=== PATIENT | female | born 1985 | race Caucasian/White ===

== ENCOUNTER 2025-08-18 13:31 | Inpatient (IN) | payer OTHER, SELFPAY ==
[2025-08-18] VITALS (9 sets, daily range): BP systolic 126–169; BP diastolic 74–96; BMI 31.5
--- NOTE | 2025-08-18 07:05 | ED.GENMED ---
History of Present Illness
<MADHURI Mckeon - Last Filed: 08/18/25 14:14>
General
Chief Complaint: Abdominal Pain
Source: patient
Exam Limitations: none
Time Seen by Provider: 08/18/25 07:02
Nursing documentation reviewed up to this point in time: agreed with
History of Present Illness
History of Present Illness:
Patient is a 40-year-old female presents to the ER for evaluation of abdominal pain vomiting. Patient started vomiting on Thursday. She vomited 3 times on Thursday however since then has had pain in her back and abdomen. She complains of left-sided
abdominal back pain along with abdominal pain. She complains of pain across the upper abdomen on the left side. She has not been able to sleep last night because of the pain. She did take an ibuprofen without relief. She has been using a heating
pad to the area and if reports she has some blistering to her abdomen because of the heating pad. She is not nauseous currently. Denies any fevers. Her last good bowel movement was on Thursday 4 days ago.
She is on Zepbound. Her dose was increased 2 weeks ago.
She denies any fever chills.
Phy Exam
<MADHURI Mckeon - Last Filed: 08/18/25 14:14>
General Physical Exam
General Presentation: no apparent distress
General age: appears stated age
General Skin: warm and dry
General Habitus: normal
General Mental: alert
General Hydration: appears well hydrated
Cardiovascular Exam
Cardiovascular Exam: regular rate/rhythm, no murmur and normal peripheral pulses
Pulmonary Exam
Pulmonary Exam: lungs clear and no respiratory distress
Gastrointestinal Exam
Gastrointestinal Exam: soft and other (+ tender left side abdomen upper abdominal region. Patient has scattered blistering to abdomen from; burn from heating)
Neurological Exam
Neurological Exam: alert and oriented x3
Musculoskeletal Exam
Musculoskeletal Exam: full ROM
Skin Exam
Skin Exam: normal color and warm/dry
Psychiatric Exam
Psychiatric Exam: normal mood/affect
Course
<MADHURI Mckeon - Last Filed: 08/18/25 14:14>
Orders/Labs/Results
Orders:
Orders
08/18/25 07:16
IV Insert/Care/Rem.- Treatment PRN
0.9% Sodium Chloride 1000 ml [Nss] 1,000 ml IV BOLUS
Ketorolac [Toradol] 15 mg IV NOW STA
08/18/25 07:17
CT Abd/Pel (IV only)-DH only Urgent
Comment:
Reason For Exam: abd pain
Test Result ONCE
08/18/25 07:26
Complete Blood Count/With Diff Urgent
Comprehensive Metabolic Panel Urgent
HCG, Serum Qualitative Screen Urgent
Lipase Urgent
Manual Differential Urgent
08/18/25 08:47
HYDROmorphone [Dilaudid] 0.5 mg IV NOW STA
08/18/25 09:30
0.9% Sodium Chloride 1000 ml [Nss] 1,000 ml IV BOLUS
08/18/25 Lunch
Clear Liquid
At Your Request: Full Participation
Fluid Restriction: 1440 mL/day (48 oz)
08/18/25 10:01
GASTROINTESTINAL CONSULT Routine
Consulting Provider: Sharri Granda
Was physician already notified: Yes
Reason for consult: Acute Pancreatitis. Recent Zepbound increased. Bilirubin elevated.
08/18/25 10:04
MR Abdomen W/o & W Contrast Routine
Comment: Need MRI with and without contrast with MRCP
Reason For Exam: Need MRI with and without contrast with MRCP
Recent pill cam endoscopy?: No
08/18/25 10:10
US Abdomen Complete/Upper Routine
Comment: Stones in bile duct? Dilation?
Reason For Exam: Acute Pancreatitis. Gallstones?
08/18/25 10:15
0.9% Sodium Chloride 1000 ml [Nss] 1,000 ml IV 200 mls/hr
08/18/25 10:25
Blood Culture Q30M
GENET Source: Blood/Venous
Specimen Description:
Blood Culture Q30M
GENET Source: Blood/Venous
Specimen Description:
08/18/25 12:04
HYDROmorphone [Dilaudid] 0.5 mg IV NOW STA
08/18/25 12:34
Polyethylene Glycol Powder [Miralax] 17 grams PO ONCE ONE
08/18/25 12:42
Rx Incentive Spirometry [RESP] Routine
Frequency: q1h while awake
08/18/25 12:49
Admit/Transfer Patient As Directed
Co-Sign Provider:
Level of Care: Inpatient admission
Assign to:: Telemetry
Physician / Group: Dr. Narayan Swanson/Hospitalists
Diagnosis: Acute Pancreatitis
Reason for Telemetry: Arrhythmia
Date to Stop Telemetry: 08/21/25
Time to Stop Telemetry: 11:00
Reason for Hospitalization: Acute Pancreatitis
Expected length of stay greater than two midnights?: Yes
ELOS- Estimated Length of Stay in days: 3
I certify the patient meets the requirements for IP care: Yes
08/18/25 12:55
Code Status As Directed
Resuscitation Status: Full Code
08/18/25 12:58
Urinalysis Reflex To Culture Urgent
Date Specimen was Collected: 08/18/25
Time Specimen was Collected: 12:57
Urine Microscopic Reflex Cult Urgent
08/18/25 13:27
Electrocardiogram (*1) Routine
Reason for Study: Tachycardia
08/18/25 13:43
Troponin I Q6H
08/18/25 19:30
Troponin I Q6H
08/19/25 01:30
Troponin I Q6H
08/19/25 07:30
Troponin I Q6H
08/19/25 13:30
Troponin I Q6H
08/21/25 11:00
DC Protocol for Telemetry ONCE
Abnormal Lab Results
08/18/25 08/18/25
07:26 12:58
WBC 27.8 H 10^3/uL
(4.8-10.8)
Abs Neuts (Manual) 24.1 H 10^3/uL
(1.4-6.5)
Band Neutrophils 13 H %
(0-3)
Lymphocytes (Manual) 2 L %
(20-51)
Monocytes (Manual) 11 H %
(2-9)
Sodium 129 L mmol/L
(135-145)
Chloride 96 L mmol/L
(98-107)
BUN 6 L mg/dl
(7-17)
Glucose 149 H mg/dl
(70-99)
Calcium 8.3 L mg/dl
(8.4-10.2)
Total Bilirubin 2.4 H mg/dl
(0.2-1.3)
Lipase 776 H U/L
(23-300)
Urine Ketones 3+ A
(Negative)
Ur Occult Blood Reflex 4+ A
(Negative)
Urine RBC 7-10 A /HPF
(0-2)
Urine Bacteria (Reflex) Few A
(Negative)
Urine Albumin (Reflex) 2+ A
(Neg - Trace)
08/18/25 07:26
08/18/25 07:26
Vital Signs
Initial and Last Documented VS:
Initial Vital Signs
Temp Pulse Resp BP Pulse Ox
98 F 129 16 169/96 98
08/18/25 06:57 08/18/25 06:57 08/18/25 06:57 08/18/25 06:57 08/18/25 06:57
Last Documented Vital Signs
Temp Pulse Resp BP Pulse Ox
98 F 126 22 126/89 99
08/18/25 06:57 08/18/25 12:04 08/18/25 12:00 08/18/25 11:45 08/18/25 12:04
Grip Wrapper consulted with Physician
Grip Wrapper consulted with physician?: Yes
Name of Physician Consulted: Haydee
<Javon Hubbard DO - Last Filed: 08/18/25 09:39>
Orders/Labs/Results
Orders:
Orders
08/18/25 07:16
IV Insert/Care/Rem.- Treatment PRN
0.9% Sodium Chloride 1000 ml [Nss] 1,000 ml IV BOLUS
Ketorolac [Toradol] 15 mg IV NOW STA
08/18/25 07:17
CT Abd/Pel (IV only)-DH only Urgent
Comment:
Reason For Exam: abd pain
Test Result ONCE
08/18/25 07:26
Complete Blood Count/With Diff Urgent
Comprehensive Metabolic Panel Urgent
HCG, Serum Qualitative Screen Urgent
Lipase Urgent
Manual Differential Urgent
08/18/25 08:47
HYDROmorphone [Dilaudid] 0.5 mg IV NOW STA
08/18/25 09:30
0.9% Sodium Chloride 1000 ml [Nss] 1,000 ml IV BOLUS
08/18/25 Lunch
Clear Liquid
At Your Request: Full Participation
Fluid Restriction: 1440 mL/day (48 oz)
08/18/25 10:01
GASTROINTESTINAL CONSULT Routine
Consulting Provider: Sharri Granda
Was physician already notified: Yes
Reason for consult: Acute Pancreatitis. Recent Zepbound increased. Bilirubin elevated.
08/18/25 10:04
MR Abdomen W/o & W Contrast Routine
Comment: Need MRI with and without contrast with MRCP
Reason For Exam: Need MRI with and without contrast with MRCP
Recent pill cam endoscopy?: No
08/18/25 10:10
US Abdomen Complete/Upper Routine
Comment: Stones in bile duct? Dilation?
Reason For Exam: Acute Pancreatitis. Gallstones?
08/18/25 10:15
0.9% Sodium Chloride 1000 ml [Nss] 1,000 ml IV 200 mls/hr
08/18/25 10:25
Blood Culture Q30M
GENET Source: Blood/Venous
Specimen Description:
Blood Culture Q30M
GENET Source: Blood/Venous
Specimen Description:
08/18/25 12:04
HYDROmorphone [Dilaudid] 0.5 mg IV NOW STA
08/18/25 12:34
Polyethylene Glycol Powder [Miralax] 17 grams PO ONCE ONE
08/18/25 12:42
Rx Incentive Spirometry [RESP] Routine
Frequency: q1h while awake
08/18/25 12:49
Admit/Transfer Patient As Directed
Co-Sign Provider:
Level of Care: Inpatient admission
Assign to:: Telemetry
Physician / Group: Dr. Narayan Swanson/Hospitalists
Diagnosis: Acute Pancreatitis
Reason for Telemetry: Arrhythmia
Date to Stop Telemetry: 08/21/25
Time to Stop Telemetry: 11:00
Reason for Hospitalization: Acute Pancreatitis
Expected length of stay greater than two midnights?: Yes
ELOS- Estimated Length of Stay in days: 3
I certify the patient meets the requirements for IP care: Yes
08/18/25 12:55
Code Status As Directed
Resuscitation Status: Full Code
08/18/25 12:58
Urinalysis Reflex To Culture Urgent
Date Specimen was Collected: 08/18/25
Time Specimen was Collected: 12:57
Urine Microscopic Reflex Cult Urgent
08/18/25 13:27
Electrocardiogram (*1) Routine
Reason for Study: Tachycardia
08/18/25 13:43
Troponin I Q6H
08/18/25 19:30
Troponin I Q6H
08/19/25 01:30
Troponin I Q6H
08/19/25 07:30
Troponin I Q6H
08/19/25 13:30
Troponin I Q6H
08/21/25 11:00
DC Protocol for Telemetry ONCE
Abnormal Lab Results
08/18/25 08/18/25
07:26 12:58
WBC 27.8 H 10^3/uL
(4.8-10.8)
Abs Neuts (Manual) 24.1 H 10^3/uL
(1.4-6.5)
Band Neutrophils 13 H %
(0-3)
Lymphocytes (Manual) 2 L %
(20-51)
Monocytes (Manual) 11 H %
(2-9)
Sodium 129 L mmol/L
(135-145)
Chloride 96 L mmol/L
(98-107)
BUN 6 L mg/dl
(7-17)
Glucose 149 H mg/dl
(70-99)
Calcium 8.3 L mg/dl
(8.4-10.2)
Total Bilirubin 2.4 H mg/dl
(0.2-1.3)
Lipase 776 H U/L
(23-300)
Urine Ketones 3+ A
(Negative)
Ur Occult Blood Reflex 4+ A
(Negative)
Urine RBC 7-10 A /HPF
(0-2)
Urine Bacteria (Reflex) Few A
(Negative)
Urine Albumin (Reflex) 2+ A
(Neg - Trace)
08/18/25 07:26
08/18/25 07:26
Vital Signs
Initial and Last Documented VS:
Initial Vital Signs
Temp Pulse Resp BP Pulse Ox
98 F 129 16 169/96 98
08/18/25 06:57 08/18/25 06:57 08/18/25 06:57 08/18/25 06:57 08/18/25 06:57
Last Documented Vital Signs
Temp Pulse Resp BP Pulse Ox
98 F 126 22 126/89 99
08/18/25 06:57 08/18/25 12:04 08/18/25 12:00 08/18/25 11:45 08/18/25 12:04
<MADHURI Mckeon - Last Filed: 08/18/25 14:14>
MDM/Problems Addressed
Differential Diagnosis Includes:
Not limited to biliary colic acute pancreatitis diverticulitis colitis bowel obstruction constipation UTI renal colic
MDM/Problems Addressed:
As documented patient is a 40-year-old female who presented with abdominal pain back pain. Patient started with vomiting several days ago however has had upper left-sided abdominal pain since and she has been on Zepbound since April but dose was
recently increased 2 weeks ago. She denies any fever or chills. She has been able to tolerate oral fluids at home. She presents uncomfortable tender throughout the abdomen. She is afebrile with an elevated white count of 27,000. With an
elevated lipase of 776. Bilirubin elevated at 2.4 no prior labs for comparison. Patient does admit to drinking several times a week.
CAT scan shows pancreatitis with edema in the left retroperitoneum extending into the pelvis no findings to suggest abscess or developing pseudocyst. Patient was treated with fluids and pain medication here in the ER she is minimally tachycardic.
She will require admission for continued monitoring supportive care. Case reviewed ED physician evaluated patient case discussed admitting hospitalist.
<MADHURI Mckeon - Last Filed: 08/18/25 14:14>
*Radiology
Radiology exam reviewed: radiology read reviewed
*Pulse Oximetry
SaO2: 98
Oxygen Mode of Delivery: Room air
Patient hypoxic: no
*Critical Care Note
Total Time (30-74mins, 75-104mins- exclusive of procedures): Not Applicable
ED Attending Note
<MADHURI Mckeon - Last Filed: 08/18/25 14:14>
-
Portions of this chart may have been created with voice recognition software.� Occasional wrong word or��sound alike� substitutions may have occurred due to the inherent limitations of voice recognition software.
<Javon Hubbard DO - Last Filed: 08/18/25 09:39>
ED Attending Note
Patient seen and examined by attending physician: Yes
I performed the substantive portion of visit, reviewed & personally made and approve the management plan that is documented in note by myself or YUMIKO.: Yes
ED Attending Note:
I agree with Inge's note.
Pt with abd pain radiating to her back for the pasr 3 days. Pain getting worse. Pt admits to moderate alcohol use. She also recently started Zepbound and the dose was just increased.
General: Awake, Alert, Oriented X3. Now feeling comfortable after pain medication and antiemetics
Vitals: Tachycardic
Head: Atraumatic
Eyes: Pupils equal, EOMI
Throat: Airway intact, no exudates, dry mucosa
Abd: tender
Neuro: Nonfocal
Skin: Warm, dry, no rash
Extremities: pulses equal b/l, no edema
Patient presents with nausea vomiting abdominal pain. Labs show a moderately elevated white count of 27.8. Her lipase is elevated at 776. CT shows significant inflammatory changes about the pancreas with some free fluid. Suspect pancreatitis
related to Zepbound though alcoholic pancreatitis also a possibility. Patient will require hospitalization for pain control, IV fluids and supportive care and monitoring for decompensation.
Discharge Plan
Departure
Patient Disposition: Admit
Date of Disposition: 08/18/25
Time of Disposition: 09:35
Admit to: Med/Surg
Admit to doctor: hospitalist
Presentation/result/management discussed w/ accepting MD/DO: Hospitalist
Patient with high blood pressure during this ER visit?: Yes
Condition: Fair
Covid-19: Not Applicable
Discharge Problem:
Acute pancreatitis
Interventions
Interventions:
*Risk Screen - Suicide Last Done: 08/18/25 06:57
*General Assessment Last Done: 08/18/25 07:14
*Neglect/Abuse Screening Last Done: 08/18/25 06:57
*ED COVID-19 Vaccine History Last Done: 08/18/25 07:24
*ED Influenza Vaccine History Last Done: 08/18/25 07:24
[facility] Fall Risk Assessment Tool Last Done: 08/18/25 07:14
JJ-Yfwqfz-Rdaizksrrh Assessment Last Done: 08/18/25 07:14
[2025-08-18] MEDS: NSS 1000 IV ×5 (07:35→18:08)
[2025-08-18] MEDS: TORADOL 15 MG IV (07:36)
[2025-08-18 07:47] LABS: Hematocrit 37.4 % (37.0-47.0); Hemoglobin 12.8 g/dL (12.0-16.0); Mean Corp Hgb Conc. 34.2 g/dL (33.0-37.0); Mean Corpuscular Volume 89.0 fL (81.0-99.0); Platelet Count 251 10^3/uL (130-400); Red Cell Dist. Width 13.7 % (11.5-14.5)
[2025-08-18 07:52] LABS: HCG, Serum Qualitative Screen Negative
[2025-08-18 07:53] LABS: ALT (SGPT) 15 U/L (0-35); AST (SGOT) 21 U/L (14-36); Albumin 3.8 g/dl (3.5-5.0); Alkaline Phosphatase 114 U/L (38-126); Blood Urea Nitrogen 6 mg/dl (7-17); Calcium 8.3 mg/dl (8.4-10.2); Carbon Dioxide 25 mmol/L (22-30); Chloride 96 mmol/L (98-107); Estimated Creatinine Clearance > 125 ml/min; Glucose 149 mg/dl (70-99); Lipase 776 U/L (23-300); Potassium 3.7 mmol/L (3.5-5.1); Sodium 129 mmol/L (135-145); Total Protein 7.1 g/dl (6.3-8.2); eGFR > 60.00
[2025-08-18] MEDS: DILAUDID 0.5 MG IV ×4 (08:54→20:41)
--- NOTE | 2025-08-18 10:12 | HPS.HSE ---
Family Physician
-
Family Physician: Glenn Bain
Chief Complaint
-
Vomiting, abdominal pain
History of Present Illness
40 y/o female with past medical history of anxiety, hyperlipidemia and obesity (on Zepbound), presented feeling unwell for the past approximately 3 days. Patient had recently increased her Zepbound medication outpatient, ~3 days prior to coming into
the ER patient started having vomiting and mid bilateral back pain, which eventually radiated to the front. She had a lot of trouble keeping down any oral intake. She called her prescribing nurse practitioner who told her it was gas pain and she did
not need to seek evaluation at urgent care or the ER. She reported constipation. She denied having any fever and mentioned that her abdominal pain was more on the left upper side than on the right upper side. She denied any chest pain or shortness
of breath. She reports alcohol consumption on weekends, splits a sixpack between her and her boyfriend with recent increases in alcohol intake.
Medical History
Past Medical History
Past Medical History: Reports Other (As per HPI above)
Past Surgical History: Reports None
Social History
Tobacco: Non-smoker
Alcohol: Occasional (see HPI)
Drug: None
Family History
Family History: Not pertinent
Allergies / Home Medications
Allergies reflects when Allergies were last updated in [employer].
Home Medications with original date entered in [employer]
Allergy/Medication List:
Allergies
Allergy/AdvReac Type Severity Reaction Status Date / Time
Penicillins Allergy Unknown Verified 08/18/25 06:56
Home Medications
Lactobac no.2-Bifidobac no.1-S. thermo 112.5 billion cell capsule (Visbiome) 1 cap PO DAILY probiotic 08/18/25
alprazolam 0.5 mg tablet 0.5 mg PO DAILYPRN PRN anxiety 08/18/25
calcium carbonate 125 mg PO DAILY Supplement 08/18/25
coQ10 (ubiquinol) 100 mg capsule 100 mg PO DAILY Supplement 08/18/25
escitalopram oxalate 10 mg tablet 10 mg PO QHS depression/anxiety 08/18/25
famotidine 40 mg tablet 40 mg PO DAILY PRN heartburn 08/18/25
ibuprofen 200 mg tablet (Advil) 200 mg PO Q6H PRN mild pain 08/18/25
inulin 1.7 gram chewable tablet (Fiber Gummies) 1.7 g PO DAILY Supplement 08/18/25
magnesium oxide 200 mg PO DAILY Supplement 08/18/25
norethindrone 1.5 mg-ethinyl estradiol 30 mcg(21)/iron 75 mg(7) tablet (Jada Fe 1.5/30 (28)) 1 tab PO DAILY Hormonal Agent 08/18/25
omega 7-gci-dmb-fish oil 1,000 mg (120 mg-180 mg) capsule (Fish Oil) 1 cap PO DAILY Supplement 08/18/25
rosuvastatin 10 mg tablet 10 mg PO QHS cholesterol 08/18/25
simethicone 80 mg chewable tablet 80 mg PO DAILYPRN PRN gas pain 08/18/25
therapeutic multivitamin 1 tab PO DAILY Supplement 08/18/25
tirzepatide (weight loss) 5 mg/0.5 mL subcutaneous pen injector (Zepbound) 5 mg SC MO weight loss 08/18/25
Review of Systems
-
A 12 point ROS was completed and negative except as noted: Yes
Physical Exam
Vital Signs
Vital Signs
Temp Pulse Resp BP Pulse Ox
98 F 129 16 169/96 98
08/18/25 06:57 08/18/25 06:57 08/18/25 06:57 08/18/25 06:57 08/18/25 07:06
Physical Exam
General: Conversant
HEENT: NormoCephalic, Moist mucous membranes and Atraumatic
Respiratory: Clear
Cardiac: S1/S2 and Tachycardia
GI: Soft, Normal Bowel Sounds and Tender
Musculoskeletal: No Cyanosis
Skin: Warm and Dry
Neuro: Awake, Alert, AO x 3 and Nonfocal/grossly intact
Psych: Calm and Intact Judgment/Insight
Laboratory Results
-
08/18/25 07:
08/18/25:
Laboratory Results
Total Bilirubin 2.4 mg/dl (0.2-1.3) H 08/18/25:
AST 21 U/L (14-36) 08/18/25:
ALT 15 U/L (0-35) 08/18/25:
Alkaline Phosphatase 114 U/L (38-126) 08/18/25:
Lipase 776 U/L (23-300) H 08/18/25:
Impression/Plan
-
Assessment/Plan
Presentation with vomiting, nausea, abdominal pain and back pain
Acute Pancreatitis
Leukocytosis -- suspected from dehydration and acute pancreatitis
-Normal Saline 200 cc/hr. Patient received normal saline boluses in the morning and also in the afternoon on 08/18/25
-Alcohol contributing? Drinks alcohol on weekends
-Okay for Clear Liquids Diet as per GI
-Her abdominal pain is more on the left side now
-Abdominal Ultrasound and CT imaging findings without biliary duct dilation, cholecystitis or cholangitis
-Patient denied having any fever
-No antibiotics needed at this time
-Ordered MRCP
-Stop Zepbound. Hold off on estrogen/ control medication with estrogen which can cause pancreatitis too.
-Avoid NSAIDs
Sinus Tachycardia
-Suspected to be mainly from patient's anxiety, as well as pain associated with pancreatitis and dehydration
-Given patient is on control and also has obesity, in the setting of tachycardia, reasonable to check for Pulmonary Embolism (PE)
-CT Chest showed that patient has no PE
-Unlikely to be cardiac ischemia, EKG unremarkable, troponin so far negative
-Continue to monitor on telemetry
Anxiety
-Continue home prn Alprazolam
Hyperlipidemia
-Continue statin
Obesity (on Zepbound)
-Stop Zepbound
DVT Prophylaxis: SCDs and Lovenox
Acute pancreatitis and sinus tachycardia is a high-risk encounter.
[2025-08-18 10:15] LABS: Absolute Neutrophils -Man Diff 24.1 10^3/uL (1.4-6.5); Normal RBC Morphology Yes; Platelets Checked Yes; Total Cells Counted 100
[2025-08-18 10:17] LABS: Toxic Granulation 1+
--- NOTE | 2025-08-18 11:59 | CON.GI ---
Consultation
-
Date/Time Consultation Requested: 08/18/25
Date/Time Consultation Performed: 08/28/25
Requesting Provider: Dr. Swanson
Performing Provider: Dr. Wasserman
Reason for Consultation: Pancreatitis
Medical History
Chief Complaint / HPI
Chief Complaint: N/V/Abdominal pain, back pain
History of Present Illness:
Melvi is a 40-year-old female with past medical history of hyperlipidemia, anxiety, obesity on Zepbound who presented to [facility] ER earlier today with complaints of nausea, vomiting, abdominal pain and back pain. She reports that 2
weeks ago her Zepbound dose was increased, she gave herself the second dose of it on Thursday and on Thursday had persistent nausea and vomiting all day. The following day, she started having midthoracic back pain followed by epigastric pain. She
called her prescribing nurse practitioner who told her it was gas pain and she did not need to seek evaluation at urgent care or the ER. Due to persistent pain she came to the ER where she was found to have a leukocytosis with left shift and acute
pancreatitis on imaging with a lipase level over 700. She had been tolerating liquids prior to arrival, currently she is NPO. No history of pancreatitis or family history of pancreatitis. She reports alcohol consumption on weekends, splits a
sixpack between her and her boyfriend. However, notes increase in alcohol consumption over the last 2 weeks between her birthday, giving and sporting event she has been drinking a lot more, but was unable to quantify how much. She admits to
taking MiraLAX as needed at home which helps, currently states that her epigastric and back pain have resolved but her pain is now in the left lower quadrant of her abdomen, rates it a 6 out of 10. She does feel like she needs to move her bowels.
Last good bowel movement was thursday, had a small BM on thursday. She denies fever/chills.
Labs: WBC 27.8, 13% bands, hemoglobin 12.8, MCV 89, platelets 251
Sodium 129, BUN 6, creatinine 0.6, T. bili 2.4, AST 21, ALT 15, alk phos 114, albumin 3.[address] abdomen pelvis with IV contrast: Minimal left pleural effusion in the posterior left hemithorax. Mild atelectasis in the posterior lower lungs, left slightly greater than right. Moderate edema surrounding the pancreas, with edema involving the
anterior pararenal space and left paracolic gutter, extending inferiorly into the left pelvis, with a small to moderate amount of free fluid in the pelvic cul-de-sac, findings are compatible pancreatitis. No gross evidence of pancreatic necrosis,
collection to suggest an abscess or developing pseudocyst. Gallbladder appears normal, no mention of sludge or stones. No biliary ductal dilatation. 6 mm cyst in the central right lobe of the liver, scattered less than 5 mm low-density lesions,
too small to characterize but likely representing small cysts or hemangiomas. Heterogeneity of enhancement of the uterus, small 1 cm fibroid fibroid extending exophytically off the posterior central uterus. Diverticulosis without evidence of
diverticulitis
Abdominal ultrasound gallbladder appears normal with negative sonographic Pantoja sign. No evidence of biliary ductal dilation. The CBD measures 5.4 mm. Liver appears t normal in size and echogenicity. Patent hepatic vasculature. Pancreatic tail
is not well-visualized.
Past Medical History
Past Medical History: Other (Anxiety, hyperlipidemia)
Social History
Tobacco: Non-Smoker
Alcohol: Other (On weekends, recent increase in etoh consumption over last 2 weeks)
Drug: None
Family History
Family History: Reviewed & Not Pertinent
Allergies / Home Medications
Allergy/AdvReac Type Severity Reaction Status Date / Time
Penicillins Allergy Unknown Verified 08/18/25 06:56
�Medication �Instructions �Recorded
Lactobac no.2-Bifidobac no.1-S. 1 cap PO DAILY 08/18/25
thermo 112.5 billion cell capsule
(Visbiome)
alprazolam 0.5 mg tablet 0.5 mg PO DAILYPRN PRN anxiety 08/18/25
calcium carbonate 125 mg PO DAILY 08/18/25
coQ10 (ubiquinol) 100 mg capsule 100 mg PO DAILY 08/18/25
escitalopram oxalate 10 mg tablet 10 mg PO QHS 08/18/25
famotidine 40 mg tablet 40 mg PO DAILY PRN heartburn 08/18/25
ibuprofen 200 mg tablet (Advil) 200 mg PO Q6H PRN mild pain 08/18/25
inulin 1.7 gram chewable tablet 1.7 g PO DAILY 08/18/25
(Fiber Gummies)
magnesium oxide 200 mg PO DAILY 08/18/25
norethindrone 1.5 mg-ethinyl 1 tab PO DAILY 08/18/25
estradiol 30 mcg(21)/iron 75 mg(7)
tablet (Jada Fe 1.5/30 (28))
omega 4-hng-bez-fish oil 1,000 mg 1 cap PO DAILY 08/18/25
(120 mg-180 mg) capsule (Fish Oil)
rosuvastatin 10 mg tablet 10 mg PO QHS 08/18/25
simethicone 80 mg chewable tablet 80 mg PO DAILYPRN PRN gas pain 08/18/25
therapeutic multivitamin 1 tab PO DAILY 08/18/25
tirzepatide (weight loss) 5 mg/0.5 5 mg SC MO 08/18/25
mL subcutaneous pen injector
(Zepbound)
Review of Systems
-
History Source: Patient
All other systems: A 12 pt ROS was Negative except as stated above in HPI
Vital Signs
Temp Pulse Resp BP Pulse Ox
98 F 106 23 142/74 97
08/18/25 06:57 08/18/25 10:45 08/18/25 10:45 08/18/25 10:00 08/18/25 10:45
Physical Exam
Exam
General: Well Developed, No Apparent Distress and Comfortable
GI: Soft, Non Tender, Normal Bowel Sounds and Distended (mild abdominal distension, tympanic to percussion)
Results
WBC 27.8 10^3/uL (4.8-10.8) H 08/18/25 07:26
Hgb 12.8 g/dL (12.0-16.0) 08/18/25 07:
Hct 37.4 % (37.0-47.0) 08/18/25 07:
MCV 89.0 fL (81.0-99.0) 08/18/25 07:
Plt Count 251 10^3/uL (130-400) 08/18/25 07:26
Sodium 129 mmol/L (135-145) L 08/18/25 07:
Potassium 3.7 mmol/L (3.5-5.1) 08/18/25 07:
Chloride 96 mmol/L (98-107) L 08/18/25 07:26
Carbon Dioxide 25 mmol/L (22-30) 08/18/25 07:
BUN 6 mg/dl (7-17) L 08/18/25 07:26
Creatinine 0.6 mg/dL (0.6-1.0) 08/18/25 07:
Calcium 8.3 mg/dl (8.4-10.2) L 08/18/25 07:26
Total Bilirubin 2.4 mg/dl (0.2-1.3) H 08/18/25 07:26
AST 21 U/L (14-36) 08/18/25 07:
ALT 15 U/L (0-35) 08/18/25 07:26
Alkaline Phosphatase 114 U/L (38-126) 08/18/25 07:26
Lipase 776 U/L (23-300) H 08/18/25 07:26
Diagnostic Image Results:
Prior GI Procedures:
EGD:
Colonoscopy:
Assessment / Plan
-
40-year-old female admitted with abdominal pain and vomiting found to have acute interstitial pancreatitis.
She meets 3 out of 3 criteria for diagnosis of acute pancreatitis, also has significant leukocytosis with left shift, hyponatremia and elevation of total bilirubin. CT scan does not mention evidence of gallstones, sludge, pericholecystic fluid or
edema, I will assume all of this was absent. Reassuringly, her BUN is 6. Her exam is benign, she has no pain on palpation. Interestingly, reports her back/epigastric pain had resolved prior to arrival, states it moved to her LLQ of her abdomen,
also endorsing constipation.
Given timing of presentation following recent increase in Zepbound dose, suspect this is the etiology of her pancreatitis although with the elevated bilirubin (no prior for comparison) and reports of increase in etoh consumption over the last 2
weeks (unable to quantify).
Plan
-Agree with MRCP
-Okay for clears, advance diet as tolerated
-analgesia and antimetics, prn-- currently, pain seems well-controlled, benign exam
-needs bowel regimen, her current pain does seem more consistent with gas-related pain and constipation, which she endorses, though, cannot ignore her leukocytosis and imaging findings
-currently getting NS @ 200 cc/hr, hyponatremia
-give dose of miralax
-leukocytosis with left shift-- f/u blood cultures, hold on abx for now, nontoxic appearing
Data Reviewed
-
CT Scan: Report Reviewed by me
Ultrasound: Report Reviewed by me
-
-
Thank you for consultation and allowing me to participate in the patient's care. Please call the stone lathe operator GI physician during the after hours with any questions or concerns.
[2025-08-18] MEDS: MIRALAX 17 GRAMS PO (13:12)
[2025-08-18 13:15] LABS: Urine Character Clear (Clear)
--- NOTE | 2025-08-18 13:40 | CM ---
Chart reviewed
Spoke with Melvi and her fiance Jj at ED bedside
Lives in [address] [facility]
2 SH but independent with ADLS and ambulation
no DME
PCP Dr. Hammad Bain
RX plan yes
[facility] on [address]
no hx of VN nor SNF
DCP is to go home no needs
Jj can drive her home
CM will continue to follow up for any dcp needs
[2025-08-18 14:21] LABS: Troponin I < 0.012 ng/ml
[2025-08-18] MEDS: LOVENOX 40 MG SC (18:07)
[2025-08-18 18:59] LABS: Troponin I < 0.012 ng/ml
--- NOTE | 2025-08-18 20:30 | PTCARENOTE ---
Assumed care of patient from previous RN. Patient resting in bed, c/o severe back pain and requesting PRN pain medication during rounding. Alert and oriented, HR elevated 120s during change of shift. Patient now requesting to walk to bathroom, HR
currently 140s, asymptomatic, tolerated well. PRN Dilaudid provided once back to bed, MADHURI Connolly notified. At this time, TT with Dr. Swanson and ART HISTORY INSTRUCTOR taking place for plan of care. Will monitor HR and reassess after pain medication administered.
Further instruction to be given if HR still sustaining greater than 130s. IVFs changed per ART HISTORY INSTRUCTOR orders to LR. Intake and output ordered Q1H to be monitored -- per ART HISTORY INSTRUCTOR Q4 hour I/Os appropriate at this time. Hat provided and explained to patient, patient
verbalizes understanding. Call ruiz within reach, will monitor.
[2025-08-18] MEDS: FLUSH (NSS) 1 FLUSH IV (20:42)
[2025-08-18] MEDS: LR 1000 IV (21:05)
[2025-08-18] MEDS: NSS IV (21:25)
[2025-08-18 21:45] LABS: Blood Urea Nitrogen < 2 mg/dl (7-17); Calcium 7.2 mg/dl (8.4-10.2); Carbon Dioxide 25 mmol/L (22-30); Chloride 100 mmol/L (98-107); Estimated Creatinine Clearance > 125 ml/min; Glucose 136 mg/dl (70-99); Potassium 3.2 mmol/L (3.5-5.1); Sodium 128 mmol/L (135-145); eGFR > 60.00
[2025-08-18] MEDS: LEXAPRO 10 MG PO (22:09)
[2025-08-18] MEDS: CRESTOR 10 MG PO (22:09)
[2025-08-18] MEDS: KCL 20 MEQ PO (22:09)
[2025-08-19] MEDS: DILAUDID 0.5 MG IV ×5 (00:59→20:27)
[2025-08-19] MEDS: LR 1000 IV ×4 (02:26→22:00)
[2025-08-19 02:55] LABS: Hematocrit 29.3 % (37.0-47.0); Hemoglobin 10.2 g/dL (12.0-16.0); Mean Corp Hgb Conc. 34.8 g/dL (33.0-37.0); Mean Corpuscular Volume 89.9 fL (81.0-99.0); Nucleated Red Blood Cells % 0 %; Platelet Count 229 10^3/uL (130-400); Red Cell Dist. Width 13.7 % (11.5-14.5)
[2025-08-19 02:58] LABS: ALT (SGPT) 13 U/L (0-35); AST (SGOT) 20 U/L (14-36); Albumin 2.9 g/dl (3.5-5.0); Alkaline Phosphatase 99 U/L (38-126); Blood Urea Nitrogen < 2 mg/dl (7-17); Calcium 7.7 mg/dl (8.4-10.2); Carbon Dioxide 26 mmol/L (22-30); Chloride 101 mmol/L (98-107); Estimated Creatinine Clearance > 125 ml/min; Glucose 135 mg/dl (70-99); Magnesium 2.0 mg/dl (1.6-2.3); Potassium 3.3 mmol/L (3.5-5.1); Sodium 130 mmol/L (135-145); Total Protein 5.7 g/dl (6.3-8.2); Triglycerides 94 mg/dl (10-149); eGFR > 60.00
[2025-08-19 03:10] LABS: Troponin I 0.017 ng/ml
[2025-08-19 03:50] VITALS: BP 158/94
--- NOTE | 2025-08-19 04:40 | PTCARENOTE ---
Patient concerned with significant amount of lower back pain that she is still having, no improvement other than with PRN Dilaudid dosing. Initial upper back pain and abdominal pain significantly improved, patient now concerned that lower back pain
is unchanged. temp 100.7 at 2300, rechecked 99.9, patient asymptomatic. Notified and discussed concerns with MADHURI Connolly -- no further interventions at this time. Significant other at bedside, call ruiz in reach. Will monitor.
--- NOTE | 2025-08-19 05:28 | PTCARENOTE ---
Patient ringing for pain control, still with another hour before next dose can be given. Patient states the pain is becoming worse to the lower back, increasing in intensity throughout the night despite PRN pain control. She is frustrated that the
Dilaudid is only giving relief for up to 3 hours and she is needing to request it more frequently as it is not giving relief until next dose can be given. Patient is requesting additional medication to assist in pain control. Notified GROUP INSURANCE SPECIAL AGENT, adding PRN
Toradol in attempt to help with pain relief -- patient states she received that in ED and it did not touch the pain at all during that time. Patient states the pain is constant, feeling like it is 'period cramps mixed with cramping you would feel
with the flu.' She states she would be happy to try it to see if it helps, as nothing is making it better at this time. Will continue to monitor.
--- NOTE | 2025-08-19 07:28 | W.PN.HOSP.TC ---
Today's Communication/Plan
-
Antibiotics given fever last night
Continue LR IV fluids at 150 cc/hr
Urine output must be closely monitored
Assessment / Plan
Assessment / Plan
Physical Exam
General: Conversant
HEENT: Normocephalic, Moist mucous membranes and Atraumatic
Respiratory: Clear
Cardiac: S1/S2 and Tachycardia
GI: Soft, Normal Bowel Sounds and Tender (tenderness has improved)
Musculoskeletal: No Cyanosis
Skin: Warm and Dry
Neuro: Awake, Alert, AO x 3 and Nonfocal/grossly intact
Psych: Calm and Intact Judgment/Insight
Assessment/Plan
Presentation with vomiting, nausea, abdominal pain and back pain
Acute Pancreatitis
Leukocytosis
New Fever overnight 08/18/25 to 08/19/25
-Abdominal pain has improved
-Continue Lactated Ringers IV fluids at 150 cc/hr.
-Closely monitor urine output
-Alcohol contributing? Drinks alcohol on weekends
-Okay to advance to low fat diet as per GI
-Abdominal Ultrasound and CT imaging findings without biliary duct dilation, cholecystitis or cholangitis
-Given fever 08/18-08/19 overnight, I discussed my concern for possible ascending cholangitis with GI, antibiotics Cipro and Flagyl have been ordered by GI, appreciate GI
-Ordered MRCP
-Stop Zepbound. Hold off on estrogen/ control medication with estrogen which can cause pancreatitis too.
-Avoid NSAIDs
Sinus Tachycardia
-Suspected to be mainly from patient's anxiety, as well as pain associated with pancreatitis and dehydration
-Given patient is on control and also has obesity, in the setting of tachycardia, reasonable to check for Pulmonary Embolism (PE)
-CT Chest showed that patient has no PE
-Unlikely to be cardiac ischemia, EKG unremarkable, troponin so far negative
-Continue to monitor on telemetry
Anxiety
-Continue home prn Alprazolam
Hyperlipidemia
-Continue statin
Obesity (on Zepbound)
-Stop Zepbound
DVT Prophylaxis: SCDs and Lovenox
Acute pancreatitis and sinus tachycardia is a high-risk encounter.
Anticipated Discharge: > 48 hours
Subjective/Interval History
-
Date of Service: August 19, 2025
Patient was seen and examined. She reported significant improvement in her abdominal pain; she continues to have back pain.
Objective Data
-
Labs:
Laboratory Results
08/18/25 08/19/25 08/19/25
21:18 02:26 09:00
WBC 22.4 H
Hgb 10.2 L D
Hct 29.3 L
Plt Count 229
Sodium 128 L 130 L Pending
Potassium 3.2 L 3.3 L Pending
Chloride 100 101 Pending
Carbon Dioxide 25 26 Pending
BUN < 2 L < 2 L Pending
Creatinine 0.5 L 0.4 L Pending
Glucose 136 H 135 H Pending
Calcium 7.2 L 7.7 L Pending
Total Bilirubin 1.7 H Pending
AST 20 Pending
ALT 13 Pending
Alkaline Phosphatase 99 Pending
Vital Signs:
Vital Signs
Temp Pulse Resp BP Pulse Ox
99.3 F 106 18 158/94 97
08/19/25 03:50 08/19/25 03:50 08/19/25 03:50 08/19/25 03:50 08/19/25 03:50
I&O
08/18/25 08/19/25 08/20/25
06:59 06:59 06:59
Intake Total 4520 / 4520
Output Total 4000 / 4000
Balance 520 / 520
[2025-08-19] MEDS: MAGNESIUM OXIDE 200 MG PO (08:42)
[2025-08-19] MEDS: VISBIOME 1 CAP PO (08:43)
[2025-08-19] MEDS: OSCAL CAL 500 500 MG PO (08:43)
[2025-08-19 08:44] VITALS: BP 151/93
[2025-08-19] MEDS: THERAGRAN 1 TABLET PO (08:44)
[2025-08-19 10:14] LABS: Troponin I 0.015 ng/ml
[2025-08-19 10:28] LABS: ALT (SGPT) 14 U/L (0-35); AST (SGOT) 25 U/L (14-36); Albumin 3.4 g/dl (3.5-5.0); Alkaline Phosphatase 132 U/L (38-126); Blood Urea Nitrogen < 2 mg/dl (7-17); Calcium 8.0 mg/dl (8.4-10.2); Carbon Dioxide 29 mmol/L (22-30); Chloride 98 mmol/L (98-107); Estimated Creatinine Clearance > 125 ml/min; Glucose 107 mg/dl (70-99); Potassium 3.7 mmol/L (3.5-5.1); Sodium 131 mmol/L (135-145); Total Protein 6.3 g/dl (6.3-8.2); eGFR > 60.00
[2025-08-19 10:29] LABS: Lipase 415 U/L (23-300)
[2025-08-19 12:47] VITALS: BP 125/82
--- NOTE | 2025-08-19 13:09 | W.PN.GI.CBS2 ---
Today's Communication / Plan
-
Await MRI today
Start abx
Low fat diet after above
Assessment / Plan
-
40-year-old female admitted with h/o GERD and obesity on zepbound who presents with acute abdominal pain and vomiting found to have acute interstitial pancreatitis.
Impression
- Acute pancreatitis
1st episode
Unclear trigger but there was some ETOH intake. No gallstones or biliary dilation on abd US or CT
Zepound recent increased and thas been linked to pancreatitis 1%
- Leukocytosis and temp 100.7F
- Obesity
- GERD
Plan
-Agree with MRCP
-Anticipate low fat diet after MRI is completed
-C/w IVF LR at 150mL/hr
-Blood cultures NGTD
-Add abx (cipro/flagyl)
-Avoid all ETOH and GLP1 agents in future
-C/w PPI and miralax
Will follow with you
Subjective
Subjective
Date of Service: August 19, 2025
Overnight had Temp of 100.7F. Blood culture thus far NGTD. Her abd pain improved to 4 out of 10. Denies nausea/vomiting. C/o back pain
Objective
Data Reviewed
Laboratory Data:
Laboratory Results
08/19/25 02:26
08/19/25 09:00
Laboratory Results
Magnesium 2.0 mg/dl (1.6-2.3) 08/19/25 02:26
Total Bilirubin Cancelled 08/19/25 09:00
AST Cancelled 08/19/25 09:00
ALT Cancelled 08/19/25 09:00
Alkaline Phosphatase Cancelled 08/19/25 09:00
Lipase 415 U/L (23-300) H 08/19/25 07:50
Vital Signs and I&O:
Vital Signs
Temp Pulse Resp BP Pulse Ox
98.7 F 98 18 125/82 90
08/19/25 12:47 08/19/25 12:47 08/19/25 12:47 08/19/25 12:47 08/19/25 12:47
I&O
08/18/25 08/19/25 08/20/25
06:59 06:59 06:59
Intake Total 4520 / 4520
Output Total 4000 / 4000
Balance 520 / 520
Physical Exam
Physical Exam
GEN: No acute distress, conversant, pleasant
HEENT: anicteric, extraocular movements intact, clear oropharynx without exudates
GI: soft, non-distended, epigastric mildly tender to palpation, normal active bowel sounds, no hepatosplenomegaly
EXT: warm, well perfused, trace edema bilaterally
NEURO: AAOx3, non-focal
[2025-08-19 14:27] LABS: Troponin I 0.018 ng/ml
[2025-08-19] MEDS: TORADOL 15 MG IV (14:56)
[2025-08-19] MEDS: FLAGYL 250 MG 50 IV ×2 (15:06→21:59)
[2025-08-19 16:36] VITALS: BP 127/78
[2025-08-19] MEDS: LOVENOX 40 MG SC (17:13)
[2025-08-19] MEDS: CIPRO 200 MG 100 IV (17:13)
[2025-08-19 19:00] VITALS: BP 136/91
[2025-08-19] MEDS: LEXAPRO 10 MG PO (21:56)
[2025-08-19] MEDS: CRESTOR 10 MG PO (21:58)
[2025-08-19 23:00] VITALS: BP 138/82
[2025-08-20] MEDS: TORADOL 15 MG IV ×2 (00:13→10:10)
[2025-08-20 03:00] VITALS: BP 140/84
[2025-08-20] MEDS: CIPRO 200 MG 100 IV (03:22)
[2025-08-20] MEDS: DILAUDID 0.5 MG IV ×3 (03:22→16:07)
[2025-08-20] MEDS: LR 1000 IV ×2 (03:23→10:23)
[2025-08-20 05:47] LABS: Hematocrit 30.4 % (37.0-47.0); Hemoglobin 10.3 g/dL (12.0-16.0); Mean Corp Hgb Conc. 33.9 g/dL (33.0-37.0); Mean Corpuscular Volume 89.4 fL (81.0-99.0); Nucleated Red Blood Cells % 0 %; Platelet Count 259 10^3/uL (130-400); Red Cell Dist. Width 13.4 % (11.5-14.5)
[2025-08-20] MEDS: FLAGYL 250 MG 50 IV (06:02)
[2025-08-20 06:14] LABS: ALT (SGPT) 19 U/L (0-35); AST (SGOT) 32 U/L (14-36); Albumin 2.9 g/dl (3.5-5.0); Alkaline Phosphatase 116 U/L (38-126); Blood Urea Nitrogen < 2 mg/dl (7-17); Calcium 8.4 mg/dl (8.4-10.2); Carbon Dioxide 30 mmol/L (22-30); Chloride 99 mmol/L (98-107); Estimated Creatinine Clearance > 125 ml/min; Glucose 121 mg/dl (70-99); Potassium 3.1 mmol/L (3.5-5.1); Sodium 133 mmol/L (135-145); Total Protein 5.7 g/dl (6.3-8.2); eGFR > 60.00
[2025-08-20 07:15] VITALS: BP 139/85
[2025-08-20] MEDS: MAGNESIUM OXIDE 200 MG PO (07:36)
[2025-08-20] MEDS: VISBIOME 1 CAP PO (07:36)
[2025-08-20] MEDS: THERAGRAN 1 TABLET PO (07:36)
[2025-08-20] MEDS: OSCAL CAL 500 500 MG PO (07:36)
--- NOTE | 2025-08-20 08:43 | W.PN.HOSP.TC ---
Today's Communication/Plan
-
Discharge today
Assessment / Plan
Assessment / Plan
Physical Exam
General: Conversant
HEENT: Normocephalic, Moist mucous membranes and Atraumatic
Respiratory: Clear
Cardiac: S1/S2 and Tachycardia
GI: Soft, Normal Bowel Sounds and Tender (tenderness has improved)
Musculoskeletal: No Cyanosis. On examination of patient's back, there is bilateral paraspinal tenderness in her lower back, but there is no spinal tenderness at the thoracic spine level all the way down to the sacrum. There is no erythema in the
back.
Skin: Warm and Dry
Neuro: Awake, Alert, AO x 3 and Nonfocal/grossly intact
Psych: Calm and Intact Judgment/Insight
Assessment/Plan
Presentation with vomiting, nausea, abdominal pain and back pain
Acute Pancreatitis
Leukocytosis
New Fever overnight 08/18/25 to 08/19/25 -- RESOLVED -- suspected from acute pancreatitis
-Abdominal pain has improved
-Received high dose Lactated Ringers IV fluids
-Has been having good urine output
-Alcohol likely contributing
-Patient is tolerating low fat diet
-Abdominal imaging this hospitalization noted, abdominal MRI/MRCP results noted without stones or bile duct dilation
-Given fever 08/18-08/19 overnight, I discussed my concern for possible ascending cholangitis with GI, antibiotics Cipro and Flagyl have been ordered by GI --> this was later stopped as MRI confirmed no signs of cholangitis
-Stop Zepbound. Hold off on estrogen/ control medication with estrogen which can cause pancreatitis too.
-Avoid NSAIDs
Sinus Tachycardia
-Suspected to be mainly from patient's anxiety, as well as pain associated with pancreatitis and dehydration
-Given patient is on control and also has obesity, in the setting of tachycardia, reasonable to check for Pulmonary Embolism (PE)
-CT Chest showed that patient has no PE
-Unlikely to be cardiac ischemia, EKG unremarkable, troponin so far negative
-Follow-up with PCP
Anxiety
-Continue home prn Alprazolam
Hyperlipidemia
-Continue statin
Obesity (on Zepbound)
-Stop Zepbound
DVT Prophylaxis: SCDs and Lovenox
More than 30 minutes spent in discharge including
Final examination of the patient
Summarizing hospital stay
Instructions for continuing care to all relevant caregivers
Preparation of discharge records, prescriptions, and referral forms
Total time spent (in minutes): 41
Anticipated Discharge: Today
Subjective/Interval History
-
Date of Service: August 20, 2025
Patient was seen and examined. Her abdominal pain is resolved. She denied any nausea or vomiting. She reported bilateral lower paraspinal back pain in her back muscles. She denied any numbness, tingling, urinary or stool incontinence, weakness,
fever or chills.
Objective Data
-
Labs:
Laboratory Results
08/20/25
05:18
WBC 15.7 H
Hgb 10.3 L
Hct 30.4 L
Plt Count 259
Sodium 133 L
Potassium 3.1 L
Chloride 99
Carbon Dioxide 30
BUN < 2 L
Creatinine 0.4 L
Glucose 121 H
Calcium 8.4
Total Bilirubin 1.2
AST 32
ALT 19
Alkaline Phosphatase 116
Vital Signs:
Vital Signs
Temp Pulse Resp BP Pulse Ox
98.5 F 97 20 139/85 98
08/20/25 07:15 08/20/25 07:15 08/20/25 07:15 08/20/25 07:15 08/20/25 07:15
I&O
08/19/25 08/20/25 08/21/25
06:59 06:59 06:59
Intake Total 4520 / 4520 3010 / 3010
Output Total 4000 / 4000
Balance 520 / 520 3010 / 3010
--- NOTE | 2025-08-20 11:40 | W.PN.GI.CBS2 ---
Today's Communication / Plan
-
Results of MRI d/w pt no gallstones or biliary issues seen
Avoid all ETOH and zepbound in future
Abd pain resolved and tolerating low fat diet
Ok from GI perspective for hosp d/c
Will sign off please call for ?
Assessment / Plan
-
40-year-old female admitted with h/o GERD and obesity on zepbound who presents with acute abdominal pain and vomiting found to have acute interstitial pancreatitis.
Impression
- Acute pancreatitis
1st episode
Unclear trigger but there was some ETOH intake. No gallstones or biliary dilation on abd US or CT
Zepound recent increased and thas been linked to pancreatitis 1%
- Leukocytosis and temp 100.7F
- Obesity
- GERD
Plan
- MRCP neg for gallstones or choledocholithiasis
- Blood cultures negative
- Stop abx
- She is tolerating low fat diet without abd pain.
- Ok to stop IVF
- C/w miralax daily and PPI
-Avoid all ETOH and GLP1 agents in future
RN and hospitalist updated with above GI will sign off please call for ?
Subjective
Subjective
Date of Service: August 20, 2025
She tolerated low fat diet for dinner last night. Denies any further abd pain. No nausea/vomiting. She is hungry for lunch. Getting her menses and reports some back pain. Had BM previously constipated.
Objective
Data Reviewed
Laboratory Data:
Laboratory Results
08/20/25 05:18
08/20/25 05:18
Laboratory Results
Magnesium 2.0 mg/dl (1.6-2.3) 08/19/25 02:26
Total Bilirubin 1.2 mg/dl (0.2-1.3) 08/20/25 05:18
AST 32 U/L (14-36) 08/20/25 05:18
ALT 19 U/L (0-35) 08/20/25 05:18
Alkaline Phosphatase 116 U/L (38-126) 08/20/25 05:18
Lipase 415 U/L (23-300) H 08/19/25 07:50
Vital Signs and I&O:
Vital Signs
Temp Pulse Resp BP Pulse Ox
98.5 F 97 20 139/85 98
08/20/25 07:15 08/20/25 07:15 08/20/25 07:15 08/20/25 07:15 08/20/25 07:15
I&O
08/19/25 08/20/25 08/21/25
06:59 06:59 06:59
Intake Total 4520 / 4520 3010 / 3010
Output Total 4000 / 4000
Balance 520 / 520 3010 / 3010
Physical Exam
Physical Exam
GEN: No acute distress, conversant, pleasant
HEENT: anicteric, extraocular movements intact, clear oropharynx without exudates
GI: soft, non-distended, epigastric mildly tender to palpation, normal active bowel sounds, no hepatosplenomegaly
EXT: warm, well perfused, no edema bilaterally
NEURO: AAOx3, non-focal
[2025-08-20 11:45] VITALS: BP 152/93
[2025-08-20] MEDS: KCL 40 MEQ PO (11:47)
[2025-08-20 11:53] LABS: Magnesium 2.3 mg/dl (1.6-2.3)
[2025-08-20] MEDS: MIRALAX 17 GRAMS PO (11:56)
[2025-08-20 15:22] LABS: Blood Urea Nitrogen < 2 mg/dl (7-17); Calcium 8.8 mg/dl (8.4-10.2); Carbon Dioxide 31 mmol/L (22-30); Chloride 97 mmol/L (98-107); Estimated Creatinine Clearance > 125 ml/min; Glucose 113 mg/dl (70-99); Magnesium 2.0 mg/dl (1.6-2.3); Potassium 3.7 mmol/L (3.5-5.1); Sodium 133 mmol/L (135-145); eGFR > 60.00
--- NOTE | 2025-08-20 15:23 | CM ---
David with patient in room .
She said Jj will drive her home.
Offered VN she declined need.
PLAN Home no needs
[2025-08-20 15:33] VITALS: BP 131/90
--- NOTE | 2025-08-20 18:22 | W.PN.UPDATE ---
Update Note
Progress Note Update
Patient is concerned about her bilateral lower back paraspinal pain. I explained to the patient all of the potential serious side effects of Cyclobenzaprine and Tramadol, including, but not limited to Serotonin Syndrome and what that could entail. I
explained that her Lexapro can also result in Serotonin Syndrome with these meds, and for now plan is to hold Lexapro. Patient made aware of Lexapro withdrawal symptoms. Patient is agreeable to trying Cyclobenzaprine first.
[2025-08-20] MEDS: FLEXERIL 5 MG PO (18:23)
[2025-08-20] MEDS: LOVENOX 40 MG SC (18:24)
[2025-08-20 19:00] VITALS: BP 146/99
[2025-08-20] MEDS: CRESTOR 10 MG PO (21:15)
[2025-08-20] MEDS: ULTRAM 50 MG PO (21:15)
--- NOTE | 2025-08-20 22:44 | PTCARENOTE ---
Patient received tramadol 50 mg @2114 which was effective. IMMUNOPATHOLOGIST in to see patient with tramadol prescription written for 25 mg every 6 hrs prn (10 tablets). Patient discharged to home @2244 with . Patient transported to lobby via wheelchair by
staffing with personal belongings.
--- NOTE | 2025-08-20 22:56 | W.PN.UPDATE ---
Update Note
Progress Note Update
At 2030 patient still with pain so Tramadol 50 mg. Pain reassessment now shows about 5/10 pain rating and appears comfortable. Her is here for the transfer. Option given for her to stay til morning but they prefer to leave tonight. Tramadol
prescription (hand written) for Tramadol 25 mg po every six hours as needed for pain. Will also continue the cyclobenzaprine for muscle spasms as needed at bedtime too.
== END 2025-08-20 22:50 | disposition home or self-care (01) | DRG 439 ==
LOC: 3 WEST ACU 13:31
PROVIDERS: Nurse Practitioner; ADMITTING PHYSICIAN Hospitalist; EMERGENCY PHYSICIAN Emergency Medicine; FAMILY PHYSICIAN Family Medicine; OTHER PHYSICIAN Internal Medicine
DX: K85.80 Other acute pancreatitis without necrosis or infection (principal); E87.1 Hypo-osmolality and hyponatremia; R17 Unspecified jaundice; E78.5 Hyperlipidemia, unspecified; F41.9 Anxiety disorder, unspecified; K59.00 Constipation, unspecified; E86.0 Dehydration; K21.9 Gastro-esophageal reflux disease without esophagitis; E66.9 Obesity, unspecified; Z68.31 Body mass index [BMI] 31.0-31.9, adult; Z79.85 Long-term (current) use of injectable non-insulin antidiabetic drugs; Z88.0 Allergy status to penicillin
CPT/HCPCS: 71275; 74177; 74183; 76700; 80048; 80053; 81003; 81015; 83690; 83735; 84478; 84484; 84703; 85025; 87040; 93005; 96361; 96374; 96375; 96376; 99285; A9575; Q9967